=== PATIENT | female | born 1980 ===

== ENCOUNTER 2018-09-05 17:55 | Emergency (ER) | payer MEDICAID, OTHER ==
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
[2018-09-05 18:22] VITALS: BP 108/78; PULSE 74; RESP 18; TEMP 98.3; O2SAT 99
== END 2018-09-05 18:35 | disposition home or self-care (01) ==
LOC: C.ER 17:55
DX: M54.5 Low back pain (principal); V89.2XXA Person injured in unspecified motor-vehicle accident, traffic, initial encounter